=== PATIENT | male | born 1935 | race Caucasian/White ===

== ENCOUNTER 2018-03-22 12:37 | Inpatient (IN) | payer MEDICARE ==
[2018-03-22] MEDS ORDERED: Diltiazem 125 MG/25 ML ONE (12:48)
[2018-03-22 13:07] LABS: #Eosinphils 0.1 thou/uL (0.0-0.7); #Lymphocytes 1.3 thou/uL (1.20-3.40); #Monocytes 0.6 thou/uL (0.11-0.59); #Neutrophils 6.9 thou/uL (1.40-6.50); %Basophils 0.5 % (0.0-1.0); %Eosinophils 0.6 % (0.0-10.0); %Lymphocytes 15.1 % (21.0-51.0); %Monocytes 6.8 % (0.0-10.0); %Neutrophils 76.9 % (42.0-75.0); Hemoglobin 16.1 g/dL (14.0-18.0); Mean Corpuscular HGB CONC 32.5 g/dL (32.0-36.0); Mean Corpuscular Hemoglobin 30.8 pg (27.0-31.0); Mean Corpuscular Volume 94.7 fl (80.0-94.0); Mean Platelet Volume 7.8 fL (7.4-10.4); Platelet Count 169 thou/uL (130-400); RBC Distribution Width 13.7 % (11.5-14.5); Red Blood Cell (RBC) Count 5.23 mill/uL (4.70-6.10); White Blood Cell (WBC) Count 8.9 thou/uL (4.8-10.8)
[2018-03-22 13:31] LABS: ALT (SGPT) 40 U/L (8-55); AST (SGOT) 45 U/L (5-34); Albumin 3.8 g/dL (3.4-4.8); Alkaline Phosphatase 80 U/L (40-150); Anion Gap 15 mmol/L (10-20); BUN (Urea Nitrogen) 29 mg/dL (8.4-25.7); Bilirubin, Total 2.5 mg/dL (0.2-1.2); CK (CPK) 60 U/L (30-200); Calc. Creatinine Clearance 0 mL/min (70-130); Calcium 9.2 mg/dL (7.8-10.44); Carbon Dioxide 28 mmol/L (23-31); Chloride 95 mmol/L (98-107); Estimated GFR-MDRD 57; Globulin 3.4 g/dL (2.4-3.5); Glucose 122 mg/dL (83-110); Potassium 3.8 mmol/L (3.5-5.1); Protein, Total 7.2 g/dL (5.8-8.1); Sodium 134 mmol/L (136-145)
[2018-03-22 13:34] LABS: CKMB 2.1 ng/mL (0-6.6); Troponin I 0.043 ng/mL (< 0.028)
--- NOTE | 2018-03-22 13:41 | RAD ---
SINGLE VIEW CHEST: Date: 03/22/18 COMPARISON: None. HISTORY: Chest pain and shortness of breath. FINDINGS: Single view of the chest shows an enlarged cardiomediastinal silhouette. There are small bilateral pl eural effusions with adjacent atelectasis. Degenerative changes are seen in the spine. IMPRESSION:[ Cardiomegaly and bilateral pleural effusions. POS: [facility]
[2018-03-22] MEDS ORDERED: Furosemide 20 MG/2 ML VIAL ONE (14:06)
[2018-03-22] MEDS ORDERED: Diltiazem 125 MG in Sodium Chloride 0.9% 100 ML IVPB SCH (14:45)
[2018-03-22] MEDS ORDERED: Ondansetron ODT 4 MG TAB PO PRN (15:05)
[2018-03-22] MEDS ORDERED: Ondansetron HCl/PF 4 MG/2 ML Vial IVP PRN (15:05)
[2018-03-22 17:32] VITALS: BMI 25.7
[2018-03-22] MEDS ORDERED: Digoxin 0.5 MG/2 ML AMP SLOW IVP SCH ×2 (18:00→23:59)
[2018-03-22 18:11] LABS: Troponin I 0.555 ng/mL (< 0.028)
[2018-03-22] MEDS: Furosemide 20 MG/2 ML VIAL SLOW IVP SCH (20:06)
--- NOTE | 2018-03-22 20:11 | HP ---
CHIEF COMPLAINT: Lower extremity edema. PRIMARY CARE PHYSICIAN: Dr. Bonilla. HISTORY OF PRESENT ILLNESS: Patient is a very pleasant 82-year-old male with most likely history of hypertension and possible heart failure who presented to the hospital with complaints of worsening lo wer extremity edema. Patient does not know much about his medical history; however, states that he h as been noticing worsening lower extremity edema for the past month. Patient states that he did call his PCP who then asked him to come into the ER for further evaluation. Patient denies any shortness of breath, chest pain or chest pressure, nausea, vomiting. Patient states that normally he walks wi th a cane; however, because of his worsening lower extremity edema, he has been using a wheelchair ar ound the home. The patient denies any orthopnea or PND. He sleeps on 1 pillow. The patient states that he has never had a cardiac catheterization. When asked the patient if he ever had a heart attac k, patient states that yes he did and when asked patient which hospital he went to get this evaluated , he stated that he never went to the hospital. He just knew when he had a heart attack because he p assed out. PAST MEDICAL HISTORY: As I mentioned before most likely either hypertension or heart failure, unsure . PAST SURGICAL HISTORY: He had an appendectomy. FAMILY HISTORY: The patient stated his mother had diabetes. SOCIAL HISTORY: He denies any alcohol use, drug use; however, he does smoke. He has a history of sm oking in the past, a pack a day when he was in the . ALLERGIES: He has got no known drug allergies. MEDICATIONS: I do not have a list of his medications since the patient does not know. I will have t o call the PCP to get a medication list. REVIEW OF SYSTEMS: A 14-point review of systems all negative except for the ones mentioned above in the HPI. PHYSICAL EXAMINATION: VITAL SIGNS: Patient was afebrile at 98.8, heart rates ranging from 98-150, blood pressure was 111/7 0, 98% on room air. GENERAL: He is awake, alert, oriented x3, does not appear in any distress. CARDIOVASCULAR: Irregularly irregular rate. No murmurs heard. LUNGS: Mild crackles to bilateral lower bases. ABDOMEN: Soft, nontender. Bowel sounds are present x2. No hepatomegaly, splenomegaly noted. HEENT: Some JVD noted on the right side. EXTREMITIES: He has got significant +2 lower extremity edema, pitting. SKIN: He does have a bruise on his right lower extremity and he has some sunburn on his bilateral perry nds and also has onychomycosis on his fingernails of the hands. LABORATORY DATA: As the following, WBCs of 8.9, hemoglobin of 15.1, hematocrit of 49.5. Chemistry: Sodium of 134, potassium of 3.8, BUN of 29, creatinine of 1.22, AST of 45, ALT of 40 and a bilirubin of 2.5. Troponin initially 0.043. His BNP is 1148. Chest x-ray that was done in the ER indicated cardiomegaly and bilateral mild pleural effusion. EKG appears to be atrial fibrillation with rapid v entricular response. ASSESSMENT AND PLAN: Patient is a very pleasant 82-year-old male who presents to the hospital with l ower extremity edema. 1. Atrial fibrillation with rapid ventricular response. Patient was given Cardizem 20 mg IV in the ER. His rate is still very labile and it ranges from 68-160, however, it is not sustaining. We will start patient on a Cardizem drip at 10 mg an hour. Also, patient was given Lasix 20 mg in the ER. We will give an additional dose of Lasix if the blood pressure allows. We will consult Cardiology. We will trend troponins. We will check a TSH. We will check an echocardiogram. 2. Lower extremity edema, most likely secondary to possible heart failure. We will continue diuresi ng the patient. 3. Possible acute heart failure, unknown if systolic versus diastolic. We will await for echocardio gram. ProBNP was elevated. 4. Acute kidney injury, unsure of his baseline creatinine. We will continue to monitor. 5. Mildly elevated LFTs with elevated bilirubin. This could be from hepatic congestion since the pa tient had no pain upon palpation; however, we will check a hepatitis panel on him and if his LFTs con tinue to trend upwards, we will get a right upper quadrant ultrasound. 6. Deep venous thrombosis prophylaxis. We will put patient on subQ heparin for now.
[2018-03-22] MEDS: Enoxaparin Sodium 80 MG/0.8 ML SYRINGE SC SCH (21:16)
[2018-03-22 22:40] LABS: CKMB 3.8 ng/mL (0-6.6)
[2018-03-22 23:05] LABS: Troponin I 1.032 ng/mL (< 0.028)
[2018-03-23] MEDS: Digoxin 0.5 MG/2 ML AMP SLOW IVP SCH ×2 (00:04→05:15)
[2018-03-23] MEDS: Acetaminophen 325 MG TAB PO PRN (00:05)
--- NOTE | 2018-03-23 03:00 | CON ---
DATE OF ADMISSION: 03/22/2018 DATE OF CONSULTATION: 03/22/2018 INDICATION FOR CONSULTATION: An 82-year-old gentleman with atrial fibrillation with rapid ventricula r response and lower extremity edema with CHF exacerbation. HISTORY OF PRESENT ILLNESS: This very pleasant 82-year-old gentleman who is a very poor historian. It does not know much of his history; however, he is for the last several weeks and knows his lower l egs have been swelling. He actually had to wear different shoes, where he could get his shoes on and he was noted to be in atrial fibrillation with rapid ventricular response. When he presented to the emergency room today with lower extremity edema all the way up to the groin. He has 2-3+ lower extr emity edema. He denies any previous cardiac history, but on further questioning says that he has had an irregular heart rate for several years. He is not on any oral anticoagulation that we can determ ine; however, in the emergency room, he was given diltiazem and Lasix. I am uncertain exactly how mu ch urine he has put out thus far, those records are still unavailable; however, he does have signific ant amount of edema. He denies any previous history of chest pain or shortness of breath. He has perry d no cardiac evaluation as far as he remembers. His chest x-ray does show bilateral pleural effusion s. EKG shows nonspecific EKG changes. No indication of previous myocardial infarction. He does hav e atrial fibrillation with rapid ventricular response. At this time, he is comfortable. He has been placed on p.o. diltiazem since the heart rate had decreased; however, is now back up in the 130s. T his will need to be addressed and further evaluation will need to be undertaken with echocardiogram a nd other etiologies will need to be determined as to why he has atrial fibrillation other than possib ly age. His past medical history is uncertain. He does not know whether he has had a myocardial inf arction or not, but he says he believes he did and on questioning was in the hospital, had he know, ellen mckinney had 1, he was uncertain was not in the hospital. He said that "1 knows" when has a heart attack. SOCIAL HISTORY: He said he has never been . He has no children. He has no tobacco abuse. 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 FAMILY HISTORY: Noncontributory. ALLERGIES: No known drug allergies. MEDICATIONS: He says he takes medications, but could not remember the name of the medications, he sa ys they are for hypertension. REVIEW OF SYSTEMS: A 12-point review of systems is unremarkable except that was noted in the history of present illness. PHYSICAL EXAMINATION: GENERAL: Reveals an elderly gentleman. VITAL SIGNS: Blood pressure 109/67, respiratory rate 22 to 26, O2 saturation 100% on 2 liters. Hear t rate initially 90 to 140s. HEENT: Shows head to be normocephalic and atraumatic. Carotid pulses are present. I cannot hear an y bruits. CHEST: Has decreased breath sounds bilaterally, but clear otherwise. CARDIOVASCULAR: Exam reveals an irregularly irregular rhythm. I cannot hear any significant murmurs at this time. He does seem to have some soft systolic murmur at the apex; however, ABDOMEN: Soft and nontender. Positive bowel sounds are present. EXTREMITIES: Showed 2-3+ lower extremity edema all the way up to the groin. Pedal pulses were prese nt. He has a large ecchymosis of the right lower leg in the medial aspect extending up into the ante rior aspect of the leg. Neurologically, I do not see any gross focal motor deficits. LABORATORY DATA: EKG shows atrial fibrillation with nonspecific changes in the lateral leads. Labor atory data shows a hemoglobin of 16.1, hematocrit is 49.5, BUN of 29, creatinine is 1.22, potassium o f 3.8. His BNP was 1148. Of note, also a TSH was 11.2. IMPRESSION: 1. Likely acute congestive heart failure exacerbation which may be due to new onset of atrial fibril lation or this may be acute on chronic congestive heart failure. We do not have any previous history . He does say that his primary care physician was Dr. Rita Bonilla. We may need to obtain records on Sunday from her office. 2. In the meantime, we will continue diuresis. 3. Atrial fibrillation with rapid ventricular response. We will try to lower the heart rate. I wou ld suggest he start on IV diltiazem and to titrate this as necessary and I will also start IV digoxin and then change attendant to p.o. in order to correct the heart rate. Further recommendations will depen d on the echocardiogram, which also is still pending. 4. History of hypertension. This is under good control at this time. We will continue to monitor. As far as atrial fibrillation is concerned, will need to make decisions about whether or not to star t oral anticoagulation and uncertain as to whether or not the lower extremity ecchymosis is due to sp ontaneous bleeding or whether or not he had an injury, but he is unaware he cannot remember what happ ened exactly and would not want to over anticoagulate this patient. If he has bleeding disorder of s ome sort and we are uncertain as to whether or not he may actually already be on some type of anticoa gulation since he does not know his medications, perhaps he can contact the pharmacy and determine wh at medications he is presently on. We will continue to follow the patient with you.
[2018-03-23 05:18] LABS: #Basophils 0.1 thou/uL (0.0-0.2); #Eosinphils 0.1 thou/uL (0.0-0.7); #Lymphocytes 1.2 thou/uL (1.20-3.40); #Monocytes 0.7 thou/uL (0.11-0.59); #Neutrophils 6.6 thou/uL (1.40-6.50); %Basophils 0.8 % (0.0-1.0); %Eosinophils 0.7 % (0.0-10.0); %Monocytes 8.4 % (0.0-10.0); %Neutrophils 76.1 % (42.0-75.0); Hemoglobin 14.7 g/dL (14.0-18.0); Mean Corpuscular HGB CONC 31.7 g/dL (32.0-36.0); Mean Corpuscular Hemoglobin 30.7 pg (27.0-31.0); Mean Platelet Volume 7.6 fL (7.4-10.4); Platelet Count 154 thou/uL (130-400); RBC Distribution Width 13.6 % (11.5-14.5); Red Blood Cell (RBC) Count 4.79 mill/uL (4.70-6.10); White Blood Cell (WBC) Count 8.6 thou/uL (4.8-10.8)
[2018-03-23 05:27] LABS: Anion Gap 12 mmol/L (10-20); BUN (Urea Nitrogen) 30 mg/dL (8.4-25.7); Calc. Creatinine Clearance 50 mL/min (70-130); Calcium 8.5 mg/dL (7.8-10.44); Carbon Dioxide 25 mmol/L (23-31); Chloride 98 mmol/L (98-107); Estimated GFR-MDRD 58; Glucose 98 mg/dL (83-110); Magnesium 1.7 mg/dL (1.6-2.6); Potassium 3.8 mmol/L (3.5-5.1); Sodium 131 mmol/L (136-145)
[2018-03-23 05:55] LABS: Free Thyroxine Index 1.92 (1.4-3.1)
[2018-03-23] MEDS: Digoxin 0.125 MG TAB PO SCH (09:42)
[2018-03-23] MEDS: Furosemide 20 MG/2 ML VIAL SLOW IVP SCH (09:42)
[2018-03-23] MEDS: Enoxaparin Sodium 80 MG/0.8 ML SYRINGE SC SCH ×2 (09:42→20:08)
[2018-03-23 10:28] LABS: Hemoglobin 15.8 g/dL (14.0-18.0); Platelet Count 161 thou/uL (130-400)
[2018-03-23 10:56] LABS: CKMB 4.3 ng/mL (0-6.6)
[2018-03-23 11:02] LABS: Troponin I 0.498 ng/mL (< 0.028)
[2018-03-23] MEDS: Furosemide 40 MG/4 ML VIAL SLOW IVP SCH (13:37)
--- NOTE | 2018-03-23 15:23 | PDOC.PN ---
- Subjective Encounter Start Date: 03/23/18 Encounter Start Time: 10:30 Subjective: pt up in bed no complains - Objective Vital Signs & Weight: Vital Signs (12 hours) Temp Pulse Resp BP Pulse Ox 03/23/18 13:30 97.5 F L 94 20 120/83 96 03/23/18 09:42 69 03/23/18 07:05 97.6 F 77 18 135/66 95 03/23/18 05:15 75 Weight Weight 161 lb 1.6 oz I&O: 03/22/18 03/23/18 03/24/18 06:59 06:59 06:59 Intake Total 360 Output Total 900 Balance -540 Result Diagrams: 03/23/18 10:11 03/23/18 05:06 Phys Exam - Physical Examination HEENT: PERRLA, moist MMs, sclera anicteric, TM's clear, oral pharynx no lesions , 2+ tonsils Neck: no nodes, no JVD, supple, full ROM mild crackles to bases irregular Gastrointestinal: soft, non-tender, no distention, positive bowel sounds Musculoskeletal: edema present Neurological: non-focal, normal sensation, moves all 4 limbs Dx/Plan - Plan 1) afib with rvr 2) lower ext edema 3) CHF unknow type 4) deven 5) elevated lfts's 6) ventricular arrhythmia 7) elevated trops plan: pt rate controlled currently. Digoxin added by cardiology. will change cardizem to coreg since pt is having arrhythmia. echo pending. pt on lovonox. CHADVASC score is 3or 4 based on echo. will increase lasix to 40mg bid. daily weight and strict intake and output. elevated trops most likely due to demand. pt has no chest pain. * . Review of Systems - Review of Systems Eyes: negative: Pain, Vision Change, Conjunctivae Inflammation, Eyelid Inflammation, Redness, Other ENT: negative: Ear Pain, Ear Discharge, Nose Pain, Nose Discharge, Nose Congestion, Mouth Pain, Mouth Swelling, Throat Pain, Throat Swelling, Other Respiratory: negative: Cough, Dry, Shortness of Breath, Hemoptysis, SOB with Excertion, Pleuritic Pain, Sputum, Wheezing Cardiovascular: negative: chest pain, palpitations, orthopnea, paroxysmal nocturnal dyspnea, edema, light headedness, other Gastrointestinal: negative: Nausea, Vomiting, Abdominal Pain, Diarrhea, Constipation, Melena, Hematochezia, Other Musculoskeletal: negative: Neck Pain, Shoulder Pain, Arm Pain, Back Pain, Hand Pain, Leg Pain, Foot Pain, Other - Medications/Allergies Allergies/Adverse Reactions: Allergies Allergy/AdvReac Type Severity Reaction Status Date / Time No Known Allergies Allergy Verified 03/22/18 17:26 Medications: Current Medications Acetaminophen (Tylenol) 650 mg PO Q4H PRN PRN Reason: Headache/Fever or Pain Last Admin: 03/23/18 00:05 Dose: 650 mg Carvedilol (Coreg) 12.5 mg PO BID-[facility] Digoxin (Lanoxin) 0.125 mg PO QAM [facility] Last Admin: 03/23/18 09:42 Dose: 0.125 mg Enoxaparin Sodium (Lovenox) 70 mg SC 0900,2100 [facility] Last Admin: 03/23/18 09:42 Dose: 70 mg Furosemide (Lasix) 40 mg SLOW IVP 0600,1400 [facility] Last Admin: 03/23/18 13:37 Dose: 40 mg Sodium Chloride (Flush - Normal Saline) 10 ml IVF Q12HR [facility] Last Admin: 03/23/18 09:44 Dose: 10 ml Sodium Chloride (Flush - Normal Saline) 10 ml IVF PRN PRN PRN Reason: Saline Flush
[2018-03-23] MEDS: Carvedilol 6.25 MG TAB PO SCH (16:47)
[2018-03-23 16:49] LABS: ALT (SGPT) 36 U/L (8-55); AST (SGOT) 45 U/L (5-34); Albumin 3.3 g/dL (3.4-4.8); Alkaline Phosphatase 71 U/L (40-150); Bilirubin, Direct 1.7 mg/dL (0.1-0.3); Bilirubin, Total 3.3 mg/dL (0.2-1.2); Protein, Total 6.4 g/dL (5.8-8.1)
--- NOTE | 2018-03-23 20:16 | PDOC.CTH ---
<Carleen Magaña - Last Filed: 03/23/18 20:38> Cardiology Progress Note - Subjective The pt seen and examined. No overnight events. No cardiac complaints. He has walked to bathroom with cane without any difficulties. - Objective Vital Signs Temp Pulse Resp BP Pulse Ox 03/23/18 15:15 97.4 F L 105 H 20 120/64 95 03/23/18 13:30 97.5 F L 94 20 120/83 96 03/23/18 09:42 69 Weight 161 lb 1.6 oz 03/22/18 03/23/18 03/24/18 06:59 06:59 06:59 Intake Total 360 575 Output Total 900 775 Balance -540 -200 - Physical Examination General/Neuro: alert & oriented x3 Neck: no JVD present Lungs: other: (diminished at bases) Heart: other: (irregular) Abdomen: soft Extremities: other: (3+ pitting BLE edema) - Telemetry Telemetry Rhythm: AFib HR 90s - Labs Result Diagrams: 03/23/18 10:11 03/23/18 05:06 Troponin/CKMB CK-MB (CK-2) 4.3 ng/mL (0-6.6) 03/23/18 10:11 Troponin I 0.498 ng/mL (< 0.028) H* 03/23/18 10:11 - Assessment/Plan 1. Afib with RVR - Rate well controlled with Coreg 12.5mg BID, Digoxin 0.125mg po, and Lovenox 70mg BID; May order EP consult 2. 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 pressure, mod-severe , and smoke in LV. On Lasix and Bblocker; start Lisinopril 5mg daily; Plan for Cardiac cath to evaluate low EF. 3. BLE edema - improving with Lasix 40mg IV BID; 4. HTN - stable; 5. NSVT - Diltiazem was changed to Coreg due to hx of NSVTs. Cont. to monitor on tele 6. elevated trops - possible due to demand ischemia 2ndary to Afib; 7. Hypothyroidism - TSH on 03/22/18 was > 11. Defer to PCP MAR reviewed * The pt may need EP consult for Afib management * Plan for Cardiac cath on Sunday for low EF. Review of Systems - Review of Systems Constitutional: reports: no symptoms reported EENTM: reports: no symptoms reported Respiratory: reports: no symptoms reported Cardiac (ROS): reports: no symptoms reported ABD/GI: reports: no symptoms reported : reports: no symptoms reported Musculoskeletal: reports: no symptoms reported Skin: reports: no symptoms reported <Randall Gallegos - Last Filed: 03/23/18 22:55> Cardiology Progress Note - Objective Vital Signs Temp Pulse Resp BP BP Pulse Ox 03/23/18 20:00 96.9 F L 70 20 98 03/23/18 19:30 96.9 F L 70 20 113/63 98 03/23/18 15:15 97.4 F L 105 H 20 120/64 95 03/23/18 13:30 97.5 F L 94 20 120/83 96 Weight 161 lb 1.6 oz 03/22/18 03/23/18 03/24/18 06:59 06:59 06:59 Intake Total 360 575 Output Total 900 775 Balance -540 -200 - Labs Result Diagrams: 03/23/18 10:11 03/23/18 05:06 Troponin/CKMB CK-MB (CK-2) 4.3 ng/mL (0-6.6) 03/23/18 10:11 Troponin I 0.498 ng/mL (< 0.028) H* 03/23/18 10:11 - Assessment/Plan Pt. was seen and eval. by me. I agree with the A/P by the WATCH TRAIN INSPECTOR. We have discussed the pt. and the plan
[2018-03-24] MEDS: Furosemide 40 MG/4 ML VIAL SLOW IVP SCH ×2 (05:10→14:03)
[2018-03-24] MEDS: Carvedilol 6.25 MG TAB PO SCH ×2 (08:17→17:04)
[2018-03-24] MEDS: Lisinopril 5 MG TAB PO SCH (08:18)
[2018-03-24] MEDS: Digoxin 0.125 MG TAB PO SCH (08:18)
[2018-03-24] MEDS: Enoxaparin Sodium 80 MG/0.8 ML SYRINGE SC SCH ×2 (08:19→20:20)
--- NOTE | 2018-03-24 11:34 | PDOC.PN ---
- Subjective Encounter Start Date: 03/24/18 Encounter Start Time: 08:20 Pt seen clem followup re: atrial fibrillation. Denies chest pain, shortness of breath, fevers or chills. No nausea or vomiting. - Objective MAR Reviewed: Yes Vital Signs & Weight: Vital Signs (12 hours) Temp Pulse Resp BP BP Pulse Ox 03/24/18 08:50 97.8 F 74 20 03/24/18 08:18 74 119/57 L 03/24/18 07:28 97.8 F 56 L 20 119/57 L 96 03/24/18 03:45 96.2 F L 88 20 112/63 95 03/24/18 00:05 98.1 F 66 20 111/55 L 94 L Weight Weight 157 lb 3.2 oz I&O: 03/23/18 03/24/18 03/25/18 06:59 06:59 06:59 Intake Total 360 899 240 Output Total 900 1475 500 Balance -540 -576 -260 Result Diagrams: 03/25/18 07:12 03/25/18 07:13 EKG Reviewed by me: Yes (Tele: mary ann arnold) Phys Exam - Physical Examination Constitutional: NAD HEENT: moist MMs, sclera anicteric, oral pharynx no lesions, 2+ tonsils Neck: no nodes, no JVD, supple, full ROM Respiratory: no wheezing, no rales, no rhonchi, clear to auscultation bilateral Cardiovascular: no rub, irregular S1, S2 Gastrointestinal: soft, non-tender, no distention, positive bowel sounds Neurological: moves all 4 limbs Psychiatric: normal affect, A&O x 3 Dx/Plan (1) Afib Code(s): I48.91 - UNSPECIFIED ATRIAL FIBRILLATION Status: Acute Comment: Pt is on Lovenox and beta traci, continue for now. (2) Cardiomyopathy Code(s): I42.9 - CARDIOMYOPATHY, UNSPECIFIED Status: Acute Comment: ischemic cardiomyopathy. Pt has diffuse 3-vessel disease, await CV surgery input (3) Acute systolic (congestive) heart failure Code(s): I50.21 - ACUTE SYSTOLIC (CONGESTIVE) HEART FAILURE Status: Acute Comment: continue IV furosemide (4) HTN (hypertension) Code(s): I10 - ESSENTIAL (PRIMARY) HYPERTENSION Status: Chronic Comment: stable - Plan * . Review of Systems - Review of Systems Respiratory: negative: Cough, Shortness of Breath, SOB with Excertion, Pleuritic Pain, Wheezing Cardiovascular: negative: chest pain, palpitations, orthopnea, paroxysmal nocturnal dyspnea, edema, light headedness Gastrointestinal: negative: Nausea, Vomiting, Abdominal Pain, Diarrhea, Constipation, Melena, Hematochezia Genitourinary: negative: Dysuria, Frequency, Incontinence, Hematuria, Retention Skin: negative: Rash, Lesions, Azam, Bruising - Medications/Allergies Allergies/Adverse Reactions: Allergies Allergy/AdvReac Type Severity Reaction Status Date / Time No Known Allergies Allergy Verified 03/22/18 17:26 Medications: Current Medications Acetaminophen (Tylenol) 650 mg PO Q4H PRN PRN Reason: Headache/Fever or Pain Last Admin: 03/23/18 00:05 Dose: 650 mg Carvedilol (Coreg) 12.5 mg PO BID-[facility] Last Admin: 03/24/18 08:17 Dose: 12.5 mg Digoxin (Lanoxin) 0.125 mg PO QAM [facility] Last Admin: 03/24/18 08:18 Dose: 0.125 mg Enoxaparin Sodium (Lovenox) 70 mg SC 0900,2100 [facility] Last Admin: 03/24/18 08:19 Dose: 70 mg Furosemide (Lasix) 40 mg SLOW IVP 0600,1400 [facility] Last Admin: 03/24/18 05:10 Dose: 40 mg Lisinopril (Zestril) 5 mg PO DAILY [facility] Last Admin: 03/24/18 08:18 Dose: 5 mg Sodium Chloride (Flush - Normal Saline) 10 ml IVF Q12HR [facility] Last Admin: 03/24/18 08:18 Dose: 10 ml Sodium Chloride (Flush - Normal Saline) 10 ml IVF PRN PRN PRN Reason: Saline Flush Last Admin: 03/24/18 05:11 Dose: 10 ml
[2018-03-24] MEDS ORDERED: Communication Order-Pharmacy FS SCH (16:15)
--- NOTE | 2018-03-24 16:15 | PDOC.CTH ---
<Carleen Magaña - Last Filed: 03/24/18 16:11> Cardiology Progress Note - Subjective The pt seen and examined. No overnight events. No cardiac complaints. His HR was down to 40s this afternoon. He was sleeping and asymptomatic. He stated He does not have anybody for his next of kin at this moment. - Objective Vital Signs Temp Pulse Resp BP BP Pulse Ox 03/24/18 12:03 97.6 F 72 18 100/42 L 97 03/24/18 08:50 97.8 F 74 20 03/24/18 08:18 74 119/57 L 03/24/18 07:28 97.8 F 56 L 20 119/57 L 96 Weight 157 lb 3.2 oz 03/23/18 03/24/18 03/25/18 06:59 06:59 06:59 Intake Total 360 899 240 Output Total 900 1475 500 Balance -429 -576 -260 - Physical Examination General/Neuro: alert & oriented x3 Neck: no JVD present Lungs: CTA Heart: other: (irregular) Abdomen: soft Extremities: other: (3-4+ pitting BLE edema) - Telemetry Telemetry Rhythm: Afib 40-70s - Labs Result Diagrams: 03/23/18 10:11 03/23/18 05:06 Troponin/CKMB CK-MB (CK-2) 4.3 ng/mL (0-6.6) 03/23/18 10:11 Troponin I 0.498 ng/mL (< 0.028) H* 03/23/18 10:11 - Assessment/Plan 1. Afib with RVR - remains in AFib with HR 40s-70s. Stop Digoxin and decrease Creg from 12.5mg to 6.25mg BID. cont. Lovenox 70mg BID; May order EP consult 2. 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 pressure, mod-severe , and smoke in LV. On Lasix, Bblocker, and Lisinopril. Plan for Cardiac cath to evaluate low EF. 3. BLE edema - improving with Lasix 40mg IV BID; 4. HTN - stable; 5. NSVT - hx of NSVTs. No SVT since. Cont. to monitor on tele 6. elevated trops - possible due to demand ischemia 2ndary to Afib; 7. Hypothyroidism - TSH on 03/22/18 was > 11. Defer to PCP MAR reviewed * The pt may need EP consult for Afib management * Plan for Cardiac cath on Sunday for low EF. The procedure and the risk of cardiac cath was explained to the pt, including, but not limited to: hemorrhage , infection, perforation of cath, thrombosis, CVA, CA, anaphylactic reaction, and possible . The pt voiced understanding and agreed to proceed the procedure. Review of Systems - Review of Systems Constitutional: reports: no symptoms reported EENTM: reports: no symptoms reported Respiratory: reports: no symptoms reported Cardiac (ROS): reports: no symptoms reported ABD/GI: reports: no symptoms reported : reports: no symptoms reported Musculoskeletal: reports: no symptoms reported <Randall Gallegos - Last Filed: 03/24/18 21:47> Cardiology Progress Note - Objective Vital Signs Temp Pulse Resp BP BP Pulse Ox 03/24/18 17:04 119/57 L 03/24/18 16:00 97.5 F L 65 18 125/71 100 03/24/18 12:03 97.6 F 72 18 100/42 L 97 Weight 157 lb 3.2 oz 03/23/18 03/24/18 03/25/18 06:59 06:59 06:59 Intake Total 360 899 240 Output Total 900 1475 1000 Balance -540 -576 -760 - Labs Result Diagrams: 03/23/18 10:11 03/23/18 05:06 Troponin/CKMB CK-MB (CK-2) 4.3 ng/mL (0-6.6) 03/23/18 10:11 Troponin I 0.498 ng/mL (< 0.028) H* 03/23/18 10:11 - Assessment/Plan Pt. seen and eval. by me. I agree with the A/P by the AUTO PARTS PROFESSIONAL. We have discussed the plan. I have discussed the cath procedure with the pt as above and he agrees to proceed. Continue diuresis.
[2018-03-25 05:11] LABS: #Basophils 0.1 thou/uL (0.0-0.2); #Eosinphils 0.1 thou/uL (0.0-0.7); #Lymphocytes 1.5 thou/uL (1.20-3.40); #Monocytes 0.6 thou/uL (0.11-0.59); #Neutrophils 5.7 thou/uL (1.40-6.50); %Eosinophils 1.6 % (0.0-10.0); %Lymphocytes 18.6 % (21.0-51.0); %Neutrophils 71.9 % (42.0-75.0); Hemoglobin 15.3 g/dL (14.0-18.0); Mean Corpuscular HGB CONC 31.6 g/dL (32.0-36.0); Mean Corpuscular Hemoglobin 30.3 pg (27.0-31.0); Mean Corpuscular Volume 95.8 fl (80.0-94.0); Mean Platelet Volume 7.7 fL (7.4-10.4); Platelet Count 161 thou/uL (130-400); RBC Distribution Width 13.5 % (11.5-14.5); Red Blood Cell (RBC) Count 5.05 mill/uL (4.70-6.10); White Blood Cell (WBC) Count 7.9 thou/uL (4.8-10.8)
[2018-03-25 05:33] LABS: Anion Gap 13 mmol/L (10-20); BUN (Urea Nitrogen) 33 mg/dL (8.4-25.7); Calc. Creatinine Clearance 45 mL/min (70-130); Calcium 8.5 mg/dL (7.8-10.44); Carbon Dioxide 31 mmol/L (23-31); Chloride 94 mmol/L (98-107); Estimated GFR-MDRD 53; Glucose 95 mg/dL (83-110); Potassium 3.5 mmol/L (3.5-5.1); Sodium 134 mmol/L (136-145)
[2018-03-25] MEDS: Lisinopril 5 MG TAB PO SCH (06:01)
[2018-03-25] MEDS: Carvedilol 6.25 MG TAB PO SCH ×2 (06:02→17:25)
[2018-03-25] MEDS: Furosemide 40 MG/4 ML VIAL SLOW IVP SCH ×2 (06:02→13:52)
[2018-03-25] MEDS ORDERED: Lidocaine 1% (PF) 30 ML VIAL ONE (06:47)
[2018-03-25] MEDS ORDERED: Iopamidol 370 76% 100 ML VIAL ONE (06:51)
[2018-03-25 07:26] LABS: Platelet Count 162 thou/uL (130-400)
--- NOTE | 2018-03-25 08:53 | PDOC.CTH ---
Cardiology Progress Note - Subjective Pt. underwent cardiac cath this AM without complications.No complaints this AM. - Objective Vital Signs Temp Pulse Resp BP BP BP Pulse Ox 03/25/18 07:10 98.7 F 70 20 120/72 86 L 03/25/18 07:00 98.7 F 70 20 86 L 03/25/18 06:02 112/66 03/25/18 06:01 70 112/66 03/25/18 04:00 70 17 112/66 96 03/25/18 00:00 99.0 F 73 18 160/74 H 97 Weight 150 lb 14.4 oz 03/24/18 03/25/18 03/26/18 06:59 06:59 06:59 Intake Total 899 720 Output Total 1475 1950 Balance -576 -1230 - Physical Examination General/Neuro: alert & oriented x3 Neck: no JVD present Lungs: CTA Heart: other: (irreg/irreg) Abdomen: NT/ND, soft - Labs Result Diagrams: 03/25/18 07:12 03/25/18 07:13 Troponin/CKMB CK-MB (CK-2) 4.3 ng/mL (0-6.6) 03/23/18 10:11 Troponin I 0.498 ng/mL (< 0.028) H* 03/23/18 10:11 - Assessment/Plan 1. S/P NSTEMI. 2. CAD-severe 3 vessel disease. Will ask for CT surgery consult. Possible off pump TURNER to the LAD. Aorta is calcified. 3. PVD. Right common iliac has an ostial stenosis of 90%. Atrial fibrillation: rate controlled. 4. CMY: ischemic. CHF: continue mild diuresis.
[2018-03-25] MEDS ORDERED: Sodium Chloride 0.9% 200 ML IV SCH (09:30)
[2018-03-25] MEDS ORDERED: traMADol HCl 50 MG TAB PO PRN (09:30)
[2018-03-25] MEDS ORDERED: Nitroglycerin 0.4 MG TAB (25 Tab Bottle) SL PRN (09:30)
[2018-03-25] MEDS ORDERED: Acetaminophen/Codeine 30-300mg Tablet PO PRN ×2 (09:30)
--- NOTE | 2018-03-25 15:23 | PDOC.PN ---
- Subjective Encounter Start Date: 03/25/18 Encounter Start Time: 11:00 Pt seen for followup re: atrial fibrillation. Had cath. Denies chest pain, shortness of breath, fevers or chills. - Objective MAR Reviewed: Yes Vital Signs & Weight: Vital Signs (12 hours) Temp Pulse Resp BP BP BP Pulse Ox 03/25/18 11:30 97 F L 67 14 98/54 L 99 03/25/18 07:10 98.7 F 70 20 120/72 86 L 03/25/18 07:00 98.7 F 70 20 86 L 03/25/18 06:02 112/66 03/25/18 06:01 70 112/66 03/25/18 04:00 70 17 112/66 96 Weight Weight 150 lb 14.4 oz I&O: 03/24/18 03/25/18 03/26/18 06:59 06:59 06:59 Intake Total 899 720 Output Total 1475 1950 Balance -576 1230 Result Diagrams: 03/25/18 07:12 03/25/18 07:13 EKG Reviewed by me: Yes (Tele: mary ann arnold) Phys Exam - Physical Examination Constitutional: NAD HEENT: moist MMs, sclera anicteric, oral pharynx no lesions, 2+ tonsils Neck: no nodes, no JVD, supple, full ROM Respiratory: no wheezing, no rales, no rhonchi, clear to auscultation bilateral Cardiovascular: no rub, irregular S1, S2 Gastrointestinal: soft, non-tender, positive bowel sounds Neurological: moves all 4 limbs Lymphatic: no nodes Psychiatric: normal affect, A&O x 3 Dx/Plan (1) Afib Code(s): I48.91 - UNSPECIFIED ATRIAL FIBRILLATION Status: Acute Comment: Pt is on Lovenox and beta traci, continue for now. (2) Cardiomyopathy Code(s): I42.9 - CARDIOMYOPATHY, UNSPECIFIED Status: Acute Comment: ischemic cardiomyopathy. Pt has diffuse 3-vessel disease, await CV surgery input (3) Acute systolic (congestive) heart failure Code(s): I50.21 - ACUTE SYSTOLIC (CONGESTIVE) HEART FAILURE Status: Acute Comment: continue IV furosemide (4) CAD (coronary artery disease) Code(s): I25.10 - ATHSCL HEART DISEASE OF [place] CORONARY ARTERY W/O ANG PCTRS Status: Acute Comment: s/p cath, await CV surgery input (5) PVD (peripheral vascular disease) Code(s): I73.9 - PERIPHERAL VASCULAR DISEASE, UNSPECIFIED Status: Acute Comment: await CV surgery input (6) HTN (hypertension) Code(s): I10 - ESSENTIAL (PRIMARY) HYPERTENSION Status: Chronic Comment: stable - Plan * . Review of Systems - Review of Systems Respiratory: negative: Cough, Shortness of Breath, SOB with Excertion, Pleuritic Pain, Wheezing Cardiovascular: negative: chest pain, palpitations, orthopnea, paroxysmal nocturnal dyspnea, edema, light headedness - Medications/Allergies Allergies/Adverse Reactions: Allergies Allergy/AdvReac Type Severity Reaction Status Date / Time No Known Allergies Allergy Verified 03/22/18 17:26 Medications: Current Medications Acetaminophen (Tylenol) 650 mg PO Q4H PRN PRN Reason: Headache/Fever or Pain Last Admin: 03/23/18 00:05 Dose: 650 mg Acetaminophen/Codeine Phosphate (Tylenol #3) 1 tab PO Q4H PRN PRN Reason: Mild Pain (1-3) Acetaminophen/Codeine Phosphate (Tylenol #3) 2 tab PO Q4H PRN PRN Reason: Moderate Pain (4-6) Carvedilol (Coreg) 6.25 mg PO BID-[facility] Last Admin: 03/25/18 06:02 Dose: 6.25 mg Furosemide (Lasix) 40 mg SLOW IVP 0600,1400 [facility] Last Admin: 03/25/18 13:52 Dose: 40 mg Lisinopril (Zestril) 5 mg PO DAILY [facility] Last Admin: 03/25/18 06:01 Dose: 5 mg Nitroglycerin (Nitrostat) 0.4 mg SL Q5MIN PRN PRN Reason: Chest Pain Sodium Chloride (Flush - Normal Saline) 10 ml IVF Q12HR [facility] Last Admin: 03/25/18 09:00 Dose: Not Given Sodium Chloride (Flush - Normal Saline) 10 ml IVF PRN PRN PRN Reason: Saline Flush Last Admin: 03/25/18 06:02 Dose: 10 ml Tramadol HCl (Ultram) 50 mg PO Q6H PRN PRN Reason: Moderate Pain (4-6)
--- NOTE | 2018-03-25 20:57 | CON ---
DATE OF CONSULTATION: 03/25/2018 HISTORY OF PRESENT ILLNESS: This is an 82-year-old gentleman with progressive dyspnea and lower extr emity edema, ultimately prompting a visit to the emergency room 3 days ago and admission to the [facility]. He initially had a BNP of greater than 1000 with a slight troponin bump. Cardiac echo was sugg estive of an EF of 20% to 25%, severe eccentric MR directed along the posterior wall, severe aortic s tenosis with a valve area of 0.8, and a peak velocity of only about 220 cm per second. Cardiac ramesh terization today revealed occluded right coronary artery with some collateralization from left to rig ht resulting in visualization of the distal right coronary artery, which was heavily calcified and a small PDA posterolateral system. The LAD was heavily calcified proximally with severe disease and th e circumflex consisted essentially of only 1 distal obtuse marginal. PAST MEDICAL HISTORY: Significant for hypertension and dyslipidemia. MEDICATIONS: Suspected to be hydralazine 10 q.i.d., lisinopril 5 daily, and HCTZ 25 a day. This pat ient does not know his medications. ALLERGIES: None known. PAST SURGICAL HISTORY: Appendectomy. SOCIAL HISTORY: The patient is a retired mechanical assembly technician. He lives alone. He has no family krystyna t he has had any contact with for many years and few friends. He takes care of himself at home and s tates that he avoids salt, although admits to eating chips that are salt free. He has not smoked sin ce 1967. PHYSICAL EXAMINATION: GENERAL: Elderly gentleman, alert, cooperative. Recorded weight of 150 pounds. VITAL SIGNS: Blood pressure is 106/60; heart rate 70, irregular, and consistent with atrial fibrilla tion. NECK: No carotid bruits. LUNGS: Bilateral expiratory wheezes. CARDIAC: Irregular rhythm. Systolic murmur at left anterior axillary line at about the seventh inte rcostal space with a murmur. No aortic murmur detected at the right upper sternal border. ABDOMEN: Obese, nontender. EXTREMITIES: He has palpable left femoral pulse. I did not appreciate any popliteal or pedal pulses , and he does have 2+ bilateral edema with ecchymosis around his right lower leg and ankle. LABORATORY DATA: Laboratory values of note include a bilirubin of 3.3. PLAN: I have discussed this situation with the patient with the possibility of coronary bypass graft ing to the LAD and OM, and if he is agreeable to surgical intervention, JULIAN of his aortic valve. The patient is not interested in any surgical intervention at his age and for this reason, medical manag ement may be most appropriate.
[2018-03-26] MEDS: Furosemide 40 MG/4 ML VIAL SLOW IVP SCH (05:58)
[2018-03-26] MEDS: Carvedilol 6.25 MG TAB PO SCH ×2 (08:55→17:48)
[2018-03-26] MEDS: Lisinopril 5 MG TAB PO SCH (08:56)
[2018-03-26 09:30] LABS: #Basophils 0.1 thou/uL (0.0-0.2); #Eosinphils 0.1 thou/uL (0.0-0.7); #Lymphocytes 1.4 thou/uL (1.20-3.40); #Monocytes 0.6 thou/uL (0.11-0.59); #Neutrophils 5.2 thou/uL (1.40-6.50); %Basophils 1.1 % (0.0-1.0); %Eosinophils 1.8 % (0.0-10.0); %Lymphocytes 19.2 % (21.0-51.0); %Monocytes 8.7 % (0.0-10.0); %Neutrophils 69.3 % (42.0-75.0); Hemoglobin 14.9 g/dL (14.0-18.0); Mean Corpuscular HGB CONC 32.1 g/dL (32.0-36.0); Mean Corpuscular Hemoglobin 30.7 pg (27.0-31.0); Mean Corpuscular Volume 95.5 fl (80.0-94.0); Mean Platelet Volume 7.8 fL (7.4-10.4); Platelet Count 165 thou/uL (130-400); RBC Distribution Width 13.3 % (11.5-14.5); Red Blood Cell (RBC) Count 4.85 mill/uL (4.70-6.10); White Blood Cell (WBC) Count 7.4 thou/uL (4.8-10.8)
[2018-03-26 09:49] LABS: BUN (Urea Nitrogen) 37 mg/dL (8.4-25.7); Calc. Creatinine Clearance 42 mL/min (70-130); Calcium 8.7 mg/dL (7.8-10.44); Estimated GFR-MDRD 52; Glucose 84 mg/dL (83-110)
[2018-03-26 09:52] LABS: ALT (SGPT) 33 U/L (8-55); AST (SGOT) 42 U/L (5-34); Albumin 3.1 g/dL (3.4-4.8); Alkaline Phosphatase 58 U/L (40-150); Bilirubin, Direct 1.2 mg/dL (0.1-0.3); Bilirubin, Total 1.9 mg/dL (0.2-1.2); Protein, Total 5.7 g/dL (5.8-8.1)
[2018-03-26 09:59] LABS: Anion Gap 16 mmol/L (10-20); Carbon Dioxide 33 mmol/L (23-31); Chloride 92 mmol/L (98-107); Potassium 3.3 mmol/L (3.5-5.1); Sodium 138 mmol/L (136-145)
--- NOTE | 2018-03-26 15:11 | PDOC.PN ---
- Subjective Encounter Start Date: 03/26/18 Encounter Start Time: 07:40 Pt seen for followup re: JANNY. denies chest pain, fevers or chills. Shortness of breath is better. - Objective MAR Reviewed: Yes Vital Signs & Weight: Vital Signs (12 hours) Temp Pulse Resp BP BP BP Pulse Ox 03/26/18 12:50 98.3 F 68 14 106/70 97 03/26/18 08:56 64 03/26/18 08:55 111/57 L 03/26/18 08:00 98.7 F 64 16 111/57 L 95 03/26/18 04:00 97.4 F L 64 20 131/63 95 Weight Weight 150 lb 14.4 oz I&O: 03/25/18 03/26/18 03/27/18 06:59 06:59 06:59 Intake Total 720 Output Total 1950 Balance -1230 Result Diagrams: 03/27/18 06:54 03/27/18 06:54 EKG Reviewed by me: Yes (Tele: mary ann arnold) Phys Exam - Physical Examination Constitutional: NAD HEENT: moist MMs Neck: supple Respiratory: clear to auscultation bilateral Cardiovascular: irregular Gastrointestinal: soft Musculoskeletal: edema present Neurological: moves all 4 limbs Psychiatric: normal affect Dx/Plan (1) JANNY (acute kidney injury) Code(s): N17.9 - ACUTE KIDNEY FAILURE, UNSPECIFIED Status: Acute Comment: likely due to diuresis, decrease furosemide dose (2) Hypokalemia Code(s): E87.6 - HYPOKALEMIA Status: Acute Comment: replace potassium (3) Afib Code(s): I48.91 - UNSPECIFIED ATRIAL FIBRILLATION Status: Acute Comment: continue Lovenox and beta traci (4) Cardiomyopathy Code(s): I42.9 - CARDIOMYOPATHY, UNSPECIFIED Status: Acute Comment: ischemic cardiomyopathy. Pt has diffuse 3-vessel disease, declined CABG (5) Acute systolic (congestive) heart failure Code(s): I50.21 - ACUTE SYSTOLIC (CONGESTIVE) HEART FAILURE Status: Acute Comment: Decrease furosemide dose (6) HTN (hypertension) Code(s): I10 - ESSENTIAL (PRIMARY) HYPERTENSION Status: Chronic Comment: stable - Plan * . Review of Systems - Review of Systems Respiratory: negative: Cough, Shortness of Breath, SOB with Excertion, Pleuritic Pain, Wheezing Cardiovascular: negative: chest pain, palpitations, orthopnea, paroxysmal nocturnal dyspnea, edema, light headedness - Medications/Allergies Allergies/Adverse Reactions: Allergies Allergy/AdvReac Type Severity Reaction Status Date / Time No Known Allergies Allergy Verified 03/22/18 17:26 Medications: Current Medications Acetaminophen (Tylenol) 650 mg PO Q4H PRN PRN Reason: Headache/Fever or Pain Last Admin: 03/23/18 00:05 Dose: 650 mg Acetaminophen/Codeine Phosphate (Tylenol #3) 1 tab PO Q4H PRN PRN Reason: Mild Pain (1-3) Acetaminophen/Codeine Phosphate (Tylenol #3) 2 tab PO Q4H PRN PRN Reason: Moderate Pain (4-6) Carvedilol (Coreg) 6.25 mg PO BID-[facility] Last Admin: 03/26/18 08:55 Dose: 6.25 mg Furosemide (Lasix) 20 mg SLOW IVP 0600,1400 [facility] Lisinopril (Zestril) 5 mg PO DAILY [facility] Last Admin: 03/26/18 08:56 Dose: 5 mg Nitroglycerin (Nitrostat) 0.4 mg SL Q5MIN PRN PRN Reason: Chest Pain Sodium Chloride (Flush - Normal Saline) 10 ml IVF Q12HR [facility] Last Admin: 03/26/18 08:58 Dose: 10 ml Sodium Chloride (Flush - Normal Saline) 10 ml IVF PRN PRN PRN Reason: Saline Flush Last Admin: 03/25/18 06:02 Dose: 10 ml Tramadol HCl (Ultram) 50 mg PO Q6H PRN PRN Reason: Moderate Pain (4-6)
[2018-03-26] MEDS ORDERED: Potassium Chloride 20 MEQ TAB PO SCH (15:15)
[2018-03-26] MEDS: Furosemide 20 MG/2 ML VIAL SLOW IVP SCH (15:24)
[2018-03-26] MEDS: Acetaminophen 325 MG TAB PO PRN (20:35)
[2018-03-26] MEDS: Enoxaparin Sodium 80 MG/0.8 ML SYRINGE SC SCH (20:35)
[2018-03-27 05:20] LABS: #Basophils 0.1 thou/uL (0.0-0.2); #Lymphocytes 0.6 thou/uL (1.20-3.40); #Monocytes 0.4 thou/uL (0.11-0.59); #Neutrophils 8.6 thou/uL (1.40-6.50); %Basophils 0.6 % (0.0-1.0); %Eosinophils 0.3 % (0.0-10.0); %Lymphocytes 6.4 % (21.0-51.0); %Monocytes 4.2 % (0.0-10.0); %Neutrophils 88.6 % (42.0-75.0); Hemoglobin 13.1 g/dL (14.0-18.0); Mean Corpuscular HGB CONC 33.6 g/dL (32.0-36.0); Mean Corpuscular Hemoglobin 32.3 pg (27.0-31.0); Mean Platelet Volume 8.3 fL (7.4-10.4); Platelet Count 130 thou/uL (130-400); RBC Distribution Width 13.1 % (11.5-14.5); Red Blood Cell (RBC) Count 4.05 mill/uL (4.70-6.10); White Blood Cell (WBC) Count 9.8 thou/uL (4.8-10.8)
[2018-03-27 05:40] LABS: Anion Gap 11 mmol/L (10-20); BUN (Urea Nitrogen) 42 mg/dL (8.4-25.7); Calc. Creatinine Clearance 42 mL/min (70-130); Calcium 8.1 mg/dL (7.8-10.44); Carbon Dioxide 34 mmol/L (23-31); Chloride 93 mmol/L (98-107); Estimated GFR-MDRD 51; Glucose 183 mg/dL (83-110); Potassium 3.8 mmol/L (3.5-5.1); Sodium 134 mmol/L (136-145)
[2018-03-27] MEDS: Furosemide 20 MG/2 ML VIAL SLOW IVP SCH (06:37)
[2018-03-27 07:20] LABS: Hemoglobin 13.1 g/dL (14.0-18.0); Platelet Count 126 thou/uL (130-400)
[2018-03-27] MEDS ORDERED: Aspirin 81 mg Enteric Coated Tablet PO SCH (11:00)
[2018-03-27] MEDS: Carvedilol 6.25 MG TAB PO SCH (11:01)
[2018-03-27] MEDS: Lisinopril 5 MG TAB PO SCH (11:01)
--- NOTE | 2018-03-27 11:13 | PDOC.CTH ---
Cardiology Progress Note - Subjective The pt seen and examined. No overnight events. No cardiac complaints. He is sitting at bedside eating at this moment without any difficulties. - Objective Vital Signs Temp Pulse Resp BP BP Pulse Ox 03/27/18 04:24 97.8 F 72 20 90/53 L 93 L 03/27/18 00:00 89 101/67 Weight 150 lb 14.4 oz 03/26/18 03/27/18 03/28/18 06:59 06:59 06:59 Output Total 1375 Balance -1375 - Physical Examination General/Neuro: other: (oriented to self and place) Lungs: CTA Heart: other: (irregular) Abdomen: soft Extremities: other: (2-3+ pitting BLE edema) - Telemetry Telemetry Rhythm: Afib 40-70s - Labs Result Diagrams: 03/27/18 06:54 03/27/18 06:54 Troponin/CKMB CK-MB (CK-2) 4.3 ng/mL (0-6.6) 03/23/18 10:11 Troponin I 0.498 ng/mL (< 0.028) H* 03/23/18 10:11 - Assessment/Plan 1. Chronic Afib with RVR - remains in AFib with HR 40s-70s with Creg 6.25mg BID. Cont. Lovenox 70mg BID which will be changed to ASA 81mg daily due to hx of multiple hx of falls at home per the pt. 2. 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 pressure, mod-severe , and smoke in LV. On Bblocker, Lisinopril and Lasix which changed to 40mg PO daily. The pt refused to have LifeVest after long discussion of his Echo result and the benefit from LifeVest. 3. BLE edema - improving with Lasix. Instructed to wear compression stockings, Watch his fluid and salt intakes, and raise his BLE while resting. 4. HTN - stable; 5. NSVT - hx of NSVTs. No SVT since. Cont. to monitor on tele 6. elevated trops - possible due to demand ischemia 2ndary to Afib; 7. Hypothyroidism - TSH on 03/22/18 was > 11. Defer to PCP MAR reviewed * From Cardiac standpoint, the pt is stable to d/c home. The pt refused LifeVest. He is not a good candidate of OAC due to Hx of multiple falls. * The pt will f/uw with Dr Gallegos' office within 2-4 wks. Review of Systems - Review of Systems Constitutional: reports: no symptoms reported EENTM: reports: no symptoms reported Respiratory: reports: no symptoms reported Cardiac (ROS): reports: no symptoms reported ABD/GI: reports: no symptoms reported : reports: no symptoms reported Musculoskeletal: reports: no symptoms reported
[2018-03-27] MEDS: Enoxaparin Sodium 80 MG/0.8 ML SYRINGE SC SCH (11:14)
--- NOTE | 2018-03-27 13:41 | DIS ---
PRIMARY CARE PHYSICIAN: Dr. Rita Bonilla DATE OF ADMISSION: 03/22/2018 DATE OF DISCHARGE: 03/27/2018 DISCHARGE DIAGNOSES: 1. Atrial fibrillation with rapid ventricular response. 2. Multivessel coronary artery disease. 3. Ischemic cardiomyopathy. 4. Severe aortic stenosis. CONDITION OF PATIENT ON THE DAY OF DISCHARGE: Stable. I assessed Mr. Zapata on the day of discharg e. He denies any chest pain or shortness of breath. Vital signs are stable. S1 and S2 are heard, r egular. Lungs are clear to auscultation bilaterally. DISCHARGE MEDICATIONS: Aspirin 81 mg daily, Coreg 6.25 mg 2 times a day, furosemide 40 mg daily, lis inopril 5 mg daily, potassium chloride 10 mEq daily. CONSULTATIONS DURING THIS HOSPITALIZATION: Cardiology, Dr. Gallegos, and Cardiovascular Surgery, Dr. Ry charles. HOSPITAL COURSE: Mr. Zapata is a pleasant 82-year-old gentleman who was admitted to [facility] on 03/22/2018 for atrial fibrillation with rapid ventricular response. He was als o found to be in congestive heart failure. He was seen by Cardiology Service. Echocardiogram showed ejection fraction of 20-25%, diastolic dysf unction, bilateral atrial enlargement, mild to moderate tricuspid regurgitation, moderate to severe m itral regurgitation, moderate to severe pulmonary arterial hypertension, severe aortic stenosis and s dudley in left ventricle. He was treated with beta blockers, POONAM inhibitor and furosemide. Because of frequent falls, he was not started on anticoagulation. He underwent cardiac catheterization on 03/25/2018. He was found to have occluded right coronary art lian with some collateralization from left to right resulting in visualization of the distal right cor onary artery, which was heavily calcified and a small PDA posterolateral system. LAD was also heavil y calcified proximally with severe disease. Circumflex consisted essentially of only 1 distal obtuse marginal. He was seen by Cardiovascular Surgery and treatment options were discussed. The patient was not interested in any surgical intervention. LifeVest was also discussed with him by Cardiology Service, the patient declined LifeVest. He also had acute renal insufficiency briefly during this hospitalization, secondary to aggressive di uresis. Creatinine is normal on the day of discharge, On the day of discharge, his hemoglobin is 13.1, hematocrit 38.4. Sodium 134, potassium 3.8, and cre atinine 1.24. He did have elevated LFTs, during this hospitalization, most likely secondary to hepat ic congestion. These also improved. He also had an elevated TSH of 11.28. However, free T3 was normal at 1.76 and T4 was normal at 5.0. He will need his thyroid profile checked in 6-8 weeks' time. Many thanks for allowing me to participate in your patient's care. Please feel free to contact me wi th any questions or concerns. DISCHARGE DESTINATION: Home. TOTAL AMOUNT OF TIME SPENT COORDINATING THIS DISCHARGE: 33 minutes.
[2018-03-27 16:56] VITALS: BP 96/64; TEMP 97.7
[2018-03-28] MEDS ORDERED: Furosemide 40 MG TAB PO SCH (07:30)
[2018-03-28] MEDS ORDERED: Aspirin 81 mg Enteric Coated Tablet PO SCH (09:00)
--- NOTE | 2018-03-30 22:15 | EKG ---
Test Reason : Blood Pressure : / mmHG Vent. Rate : 165 BPM Atrial Rate : 156 BPM P-R Int : 000 ms QRS Dur : 086 ms QT Int : 278 ms P-R-T Axes : 000 073 182 degrees QTc Int : 460 ms Atrial fibrillation with rapid ventricular response Marked ST abnormality, possible lateral subendocardial injury Abnormal ECG Confirmed by CHANTAL FLORES D.O. ([id number]), acquisitions editor KARELY MARIE ([id number]) on 03/30/2018 10:14:17 PM Referred By: Confirmed By:CHANTAL FLORES D.O.
--- NOTE | 2018-03-30 22:15 | EKG ---
Test Reason : Blood Pressure : / mmHG Vent. Rate : 109 BPM Atrial Rate : 122 BPM P-R Int : 000 ms QRS Dur : 090 ms QT Int : 350 ms P-R-T Axes : 000 032 189 degrees QTc Int : 471 ms Undetermined rhythm Possible Lateral infarct , age undetermined Abnormal ECG Confirmed by CHANTAL FLORES D.O. ([id number]), deputy editor in chief KARELY MARIE ([id number]) on 03/30/2018 10:14:18 PM Referred By: Confirmed By:CHANTAL FLORES D.O.
== END 2018-03-27 16:27 | disposition home or self-care (01) | DRG 286 ==
LOC: ERS 12:37 → 2NO 14:00
PROVIDERS: ADMIT Internal Medicine; ATTEND Internal Medicine
PROC: 4A023N7 Measurement of Cardiac Sampling and Pressure, Left Heart, Percutaneous Approach (ICD-10-PCS; principal; 2018-03-25)
PROC: B2111ZZ Fluoroscopy of Multiple Coronary Arteries using Low Osmolar Contrast (ICD-10-PCS; 2018-03-25)
PROC: B2151ZZ Fluoroscopy of Left Heart using Low Osmolar Contrast (ICD-10-PCS; 2018-03-25)
DX: I48.2 Chronic atrial fibrillation (principal); I50.43 Acute on chronic combined systolic (congestive) and diastolic (congestive) heart failure; N17.9 Acute kidney failure, unspecified; I47.2 Ventricular tachycardia; I25.10 Atherosclerotic heart disease of native coronary artery without angina pectoris; I35.0 Nonrheumatic aortic (valve) stenosis; I25.5 Ischemic cardiomyopathy; Z90.49 Acquired absence of other specified parts of digestive tract; I08.0 Rheumatic disorders of both mitral and aortic valves; I73.9 Peripheral vascular disease, unspecified; E87.6 Hypokalemia
CPT/HCPCS: 36415; 71045; 80048; 80053; 80076; 82550; 82553; 82565; 83735; 83880; 84436; 84443; 84479; 84481; 84484; 85014; 85018; 85025; 85049; 93005; 93306; 93458; 93798; 96374; 96375; 96376; A4216; C1769; G8978-GP-CI; G8979-GP-CI; G8980-GP-CI; G8987-GO-CI; G8988-GO-CI; G8989-GO-CI; J1160; J1644; J1650; J1940; J2001